=== PATIENT | female | born 1995 | race Asian ===

== ENCOUNTER 2017-12-24 20:35 | Emergency (ER) | payer OTHER, SELFPAY | END 2017-12-24 22:41 | disposition home or self-care (01) | PROVIDERS: Emergency Provider Internal Medicine; Visit Provider Internal Medicine | DX: J10.1 Influenza due to other identified influenza virus with other respiratory manifestations (principal); K62.5 Hemorrhage of anus and rectum | CPT/HCPCS: 36415; 80053; 81003; 81015; 81025; 85025; 85379; 87400; 94640; 94664; 99058; 99283; J7613 ==